=== PATIENT | female | born 1995 | race Caucasian/White ===

== ENCOUNTER 2020-06-10 07:38 | Inpatient (IN) ==
[2020-06-10] MEDS ORDERED: OXYTOCIN 30 UNITS/500 ML BAG IV PRN ×2 (07:44)
[2020-06-10] MEDS ORDERED: PENICILLIN G POTASSIUM 6 MU in DEXTROSE 5% 250 ML IV ONE (08:00)
[2020-06-10] MEDS: miSOPROStoL 25 MCG TAB PV PRN ×2 (08:49→13:09)
[2020-06-10 08:50] LABS: Hematocrit (blood only) 39.8 % (37-47); Hemoglobin 13.5 g/dL (12.0-16.0); Mean Corpuscular Hemoglobin 31.6 pg (25-34); Mean Corpuscular Volume 93.2 fL (80-100); RDW Coefficient of Variation 14.9 % (11.5-14.5); RDW Standard Deviation 50.3 fL (36.4-46.3); Red Blood Count 4.27 M/uL (4.2-5.4); White Blood Count 8.23 K/uL (4.8-10.8)
--- NOTE | 2020-06-10 09:01 | History & Physical Report ---
Date of Service June 10, 2020 Assessment & Plan (1) Suspected macroscopic fetus: - heart tracing category 1 with accelerations and variability -No cervical change after placement of cervical Nesbitt -Cervix highly unfavorable for Pitocin -We will place Cytotec 25 mcg vaginally to be repeated every 4 hours as needed -If there is some clinical response to the Cytotec may consider replacement of cervical Nesbitt -All questions answered of the patient (2) Group B streptococcal carriage complicating : -We will start penicillin 6,000,000 unit loading dose, then 3,000,000 units every 4 hours till delivery Admission and Anticipated Discharge Date Admission Date: June 10, 2020 History of Present Illness Chief Complaint: Induction for suspected macrosomia Primary Care Provider: Dori Santos MD The patient is a 25-year-old 1 para 0 with an EDC of 16 June by dates and first trimester ultrasound who was admitted at 39+ weeks gestational age for induction for suspected macrosomia. The patient has been measuring size greater than dates throughout the third trimester. Ultrasound showed an estimated weight greater than the 90th percentile. Options were discussed with the patient and she is admitted for induction. The patient presented to labor and delivery on 09 June for cervical Nesbitt placement for ripening. Patient states that the Nesbitt balloon dislodged at 0300 hrs. on day of admission. course showed a blood type of A-, antibody negative, she received RhoGam on 25 March, she had a negative rubella negative hepatitis B, she declined all genetic screening, she had a normal 1 hour Glucola at 16 weeks but elevated at 28 weeks, she had a -2-hour glucose tolerance test at 28 weeks, she had a positive third trimester beta strep culture, and a negative COVID-19 test on 03 June. Allergies Allergy/AdvReac Type Severity Reaction Status Date / Time No Known Allergies Allergy Verified 06/10/20 08:08 Home Medications Home Medications Medication Instructions Recorded Confirmed Type ferrous sulfate [iron] 325 mg PO DAILY 06/10/20 06/10/20 History prenat.vits,bernard,[id number] 1 tab PO DAILY 06/10/20 06/10/20 History [ Vitamin] Patient History Medical History Depression Need for rhogam due to Rh negative mother Varicella vaccination Surgical History H/O myringotomy History of adenoidectomy History of arthroscopy of knee History of tonsillectomy History of wisdom tooth extraction Family History Grandmother No problems noted. Grandfather Prostate cancer Myocardial infarction Mother Anemia Father Dyslipidemia Brother No problems noted. Sister No problems noted. Denies family history of Ovarian cancer Breast cancer Colorectal cancer Social History (Updated 11/06/19 @ 09:56 by Lorraine Martinez) Smoking Status: Never smoker Second Hand Exposure: No; Hx Alcohol Use: Yes Hx Substance Use: No Preferred Language: Beninese Communication Ability: Effective Visual Impairment: No Limitations Hearing Ability: Normal Beliefs That Will Affect Care: None marital status: marital status details: Jamel Forbes (27) [phone] Current Living Situation: Spouse Current Living Situation Comment: lives with spouse, dog current occupational status: employed current occupation: [employer] Other Information That Helps Us Care for You: No Feels Safe at Home: Yes Safety Concerns: Feels Safe At This Time Childhood Exposure to Second-Hand Smoke: No Dental Care, Regularly: Yes Physical Activity Frequency: 3-4 Times per Week Seatbelt Use: always Sunscreen Use: Yes Physical Exam Constitutional: WD/WN, vitals as above Respiratory: Auscultation: lungs clear to auscultation bilaterally Cardiovascular: RRR, no murmur, no edema Extremities: no calf tenderness Gastrointestinal (Abdomen): Abdomen: Gravid, vertex, positive heart tones, no palpable contractions, estimated weight of 9 pounds Genitourinary: Cervix: Fingertip/75%/-3 Results & Data ([facility]) Vital Signs (Past 12 Hours) Vital Signs Temp Pulse Resp BP 06/10/20 08:45 94 H 136/89 06/10/20 07:52 98.1 F 20 06/10/20 07:47 100 H 134/88 Coding Level of Care Code None Diagnoses Suspected macroscopic fetus Group B streptococcal carriage complicating O99.820
[2020-06-10 09:06] LABS: Mean Corpuscular Hgb Conc 33.9 g/dL (32-36); Mean Platelet Volume 12.8 fL (7.4-10.4); Platelet Count 132 K/uL (130-400); Platelet Estimate Decreased (Normal)
--- NOTE | 2020-06-10 17:19 | Labor Progress Brief Note ---
Date of Service June 10, 2020 Subjective Reason For Note: Routine Evaluation Assessment & Plan (1) Suspected macroscopic fetus: - tracing Cat I - minimal uterine activity from2 doses of cytotec - will allow patient to eat - will replace cervical south - will start pitocin low dose for cervical ripening Admission and Anticipated Discharge Date Admission Date: June 10, 2020 Physical Exam Genitourinary: deferred Results & Data ([facility]) Vital Signs (Past 12 Hours) Vital Signs Temp Pulse Resp BP 06/10/20 15:13 99.0 F 88 20 134/88 06/10/20 12:35 99.0 F 82 20 133/85 06/10/20 10:01 83 130/86 06/10/20 08:45 94 H 136/89 06/10/20 07:52 98.1 F 20 06/10/20 07:47 100 H 134/88 Coding Level of Care Code None Diagnoses Suspected macroscopic fetus
--- NOTE | 2020-06-10 19:09 | Labor Progress Brief Note ---
Date of Service June 10, 2020 Subjective For cervical Nesbitt replacement Assessment & Plan (1) Suspected macroscopic fetus: -Tracing category 1 -Nesbitt catheter replaced for cervical ripening -We will run Pitocin at 1 milliunits/min for approximately 10 hours and then increase per induction protocol -All questions answered of the patient. Admission and Anticipated Discharge Date Admission Date: June 10, 2020 Physical Exam Genitourinary: Procedure note: After obtaining verbal consent, patient is placed in a dorsolithotomy position. Cervix is visualized. A #24 cervical Nesbitt catheter is inserted into the cervix and insufflated with 30 cc of normal saline. Speculum removed, patient tolerated the procedure well. Results & Data ([facility]) Vital Signs (Past 12 Hours) Vital Signs Temp Pulse Resp BP 06/10/20 18:56 107 H 130/81 06/10/20 15:13 99.0 F 88 20 134/88 06/10/20 12:35 99.0 F 82 20 133/85 06/10/20 10:01 83 130/86 06/10/20 08:45 94 H 136/89 06/10/20 07:52 98.1 F 20 06/10/20 07:47 100 H 134/88 Coding Level of Care Code None Diagnoses Suspected macroscopic fetus CPT Codes Misx Procedure Codes - 53760 Placement of cervical dilator: 44450 Placement of cervical dilator ([id number]) LABORER HIGH DENSITY PRESS Miscellaneous Codes Misx Procedure Codes 35957 Placement of cervical dilator
[2020-06-10] MEDS: LACTATED RINGER'S 1,000 ML IV PRN (19:14)
[2020-06-10] MEDS ORDERED: ACETAMINOPHEN 325 MG TAB PO PRN (20:29)
[2020-06-10] MEDS: PENICILLIN G POTASSIUM 3 MU in DEXTROSE 5% 100 ML IV PRN (23:17)
[2020-06-11] MEDS: PENICILLIN G POTASSIUM 3 MU in DEXTROSE 5% 100 ML IV PRN ×4 (03:27→15:39)
[2020-06-11] MEDS: BUTORPHANOL TARTRATE 1 MG/ML VIAL IV PRN ×2 (04:05→05:09)
[2020-06-11] MEDS: LACTATED RINGER'S 1,000 ML IV PRN ×3 (05:34→15:51)
[2020-06-11] MEDS ORDERED: ePHEDrine sulfate 50 MG/ML AMP ONE (05:41)
[2020-06-11] MEDS ORDERED: fentaNYL citrate 100 MCG/2 ML VIAL ONE ×3 (05:41→22:02)
[2020-06-11] MEDS ORDERED: BUPIVACAINE 0.25% 30 ML VIAL ONE ×3 (05:41→19:44)
[2020-06-11] MEDS ORDERED: fentaNYL 2MCG/ML ROPIV 1.25MG/ML 100 ML BAG EPI ONE (05:42)
--- NOTE | 2020-06-11 06:02 | Anesthesiology Consultation ---
Date of Service June 11, 2020 Assessment & Plan (1) Encounter for pre-operative examination: Chart Review Chart Review: Patient NOT seen in Pre Admission Testing and Acceptable Risk for Labor Epidural Consults Requested none ASA ASA2 Proposed Anesthesia Anesthesia Type: Labor Epidural Risk / Benefits Reviewed With: PT / POA / Parent / Guardian, Accepts Plan and Informed Consent Obtained History Height/Weight Height: 5 ft 3 in Weight: 92.986 kg Allergies Allergy/AdvReac Type Severity Reaction Status Date / Time No Known Allergies Allergy Verified 06/10/20 08:08 Medications Home Medications Medication Instructions Recorded Confirmed Last Taken ferrous sulfate [iron] 325 mg PO DAILY 06/10/20 06/10/20 06/09/20 20:00 prenat.vits,bernard,[id number] 1 tab PO DAILY 06/10/20 06/10/20 06/09/20 20:00 [ Vitamin] Active Medications Generic Name Dose Route Start Last Admin Trade Name Freq PRN Reason Stop Dose Admin Acetaminophen 650 mg 06/10/20 20:29 06/10/20 20:46 Acetaminophen 325 Mg Tab PO 07/10/20 20:28 650 mg Q4H PRN Administration Pain Butorphanol Tartrate 1 mg 06/10/20 20:29 06/11/20 05:09 Butorphanol Tartrate 1 Mg/Ml Vial IV 07/10/20 20:28 1 mg Q1H PRN Administration Pain Lactated Ringer's 1,000 mls @ 125 mls/hr 06/10/20 07:44 06/11/20 06:03 Lr IV 06/12/20 07:43 125 mls/hr .Q8H PRN Infusion L&D Protocol Protocol Penicillin G Potassium 3 mu/ 106 mls @ 100 mls/hr 06/10/20 07:44 06/11/20 04:33 Dextrose IV 06/20/20 07:43 Infused Q4H PRN Infusion Give until delivery Oxytocin 30 units in 500 mls @ 9 mls/hr 06/10/20 07:44 06/11/20 04:30 Pitocin IV 06/12/20 07:43 0.54 units/hr .Q24H PRN 9 mls/hr Labor Induction/Augmentation Titration Protocol 0.54 UNITS/HR Misoprostol 25 mcg 06/10/20 08:29 06/10/20 13:09 Misoprostol 25 Mcg Tab PV 07/10/20 08:29 25 mcg Q4H PRN Administration Contractions NPO Date Last Intake of Fluids: 06/11/20 Time Last Intake of Fluids: 05:58 Date Last Intake of Solids: 06/10/20 Time Last Intake of Solids: 18:00 Past Medical History Medical History Depression Need for rhogam due to Rh negative mother Varicella vaccination Exercise / Class Metabolic Activity II 4-5 Yardwork/Stairs/Walk up hill Past Family History Family History Grandmother No problems noted. Grandfather Prostate cancer Myocardial infarction Mother Anemia Father Dyslipidemia Brother No problems noted. Sister No problems noted. Denies family history of Ovarian cancer Breast cancer Colorectal cancer Past Surgical History Surgical History H/O myringotomy History of adenoidectomy History of arthroscopy of knee History of tonsillectomy History of wisdom tooth extraction Past Anesthesia History No Hx of Anesthesia Complications History of PONV No Hx of PONV Social History Smoking Status: Never smoker Hx Alcohol Use: Yes Hx Substance Use: No Review of Systems Negative for chest pain or shortness of breath. Patient denies history of abnormal bleeding or bleeding disorder. Patient denies active use of anticoagulants other than low dose aspirin. Patient denies numbness, tingling or weakness in lower extremities. Physical Exam Vital Signs Last Vital Signs Temp 37.2 C 06/11/20 03:30 Pulse 68 06/11/20 05:51 Resp 18 06/11/20 03:30 BP 115/65 06/11/20 04:52 Pulse Ox 95 06/11/20 05:51 Constitutional not obese (Gravid ) ENMT Mouth: no TMJ abnormality and oral opening not small Thyromental Distance: > or= 3.5 Finger Breadths Mallampati Class: II Neck normal visual inspection; neck extension not limited Respiratory normal respiratory effort Auscultation: lungs clear to auscultation bilaterally Cardiovascular Rate/Rhythm: regular rate and regular rhythm Heart Sounds: no murmur Neurologic moves all extremities Motor/Sensory: no sensory deficit Psychiatric Orientation: alert and oriented x 3 Testing Laboratory Results 06/10/20 08:13
[2020-06-11] MEDS ORDERED: DiphenhydrAMINE HCL 50 MG/ML VIAL IV PRN ×3 (07:15→23:01)
[2020-06-11] MEDS ORDERED: ONDANSETRON INJ 2 MG/ML 2 ML VIAL IV PRN ×3 (07:15→23:01)
[2020-06-11] MEDS ORDERED: ePHEDrine sulfate 50 MG/ML AMP IV PRN ×2 (07:15→23:01)
[2020-06-11] MEDS ORDERED: PROMETHAZINE HCL 6.25 MG in SODIUM CHLORIDE 0.9% 50 ML IV PRN ×2 (07:15→23:01)
[2020-06-11] MEDS ORDERED: NALOXONE HCL 1 MG in SODIUM CHLORIDE 0.9% 1000ML 1,000 ML IV PRN ×2 (07:15→23:01)
[2020-06-11] MEDS ORDERED: NALOXONE HCL 0.4 MG/1 ML VIAL/CARP IV PRN ×2 (07:15→23:01)
--- NOTE | 2020-06-11 07:17 | Procedure Note ---
Procedure Note Date of Service June 11, [address] epidural at about 0540. Arrived and consented patient by 0605. Patient prepped and draped and multiple attempts made starting at 0610 around the L2/L3 and L3/L4 interspaces without success. Needle would advance until about 5.5 to 6 cm before hitting OS. Pt tolerated all attempts well and at no time did the patient experience a parasthesia. The needle never advanced beyond bone and there was no evidence of dural puncture. At 0645 the next OB anesthesiologist coming in was called to attempt placement. Leonor Sharma MD, PhD Anesthesiologist Coding
--- NOTE | 2020-06-11 07:44 | Labor Progress Brief Note ---
Date of Service June 11, 2020 Subjective Reason For Note: Routine Evaluation Comfortable with epidural Assessment & Plan (1) Suspected macroscopic fetus: - tracing Cat II - IUPC - continue the pitocin Admission and Anticipated Discharge Date Admission Date: June 10, 2020 Physical Exam Genitourinary: Cervix: 3/50/-2, AROM, ?light mec, IUPC placed Results & Data ([facility]) Vital Signs (Past 12 Hours) Vital Signs Temp Pulse Resp BP Pulse Ox 06/11/20 07:38 82 130/75 06/11/20 07:36 92 H 124/75 99 06/11/20 07:34 88 129/74 06/11/20 07:32 77 125/75 06/11/20 07:31 89 98 06/11/20 07:30 83 119/70 06/11/20 07:28 82 125/74 06/11/20 07:26 84 121/75 98 06/11/20 07:24 80 121/72 06/11/20 07:22 83 119/70 06/11/20 07:21 88 97 06/11/20 07:20 84 119/72 06/11/20 07:18 79 122/76 06/11/20 07:17 85 124/81 06/11/20 07:16 82 97 06/11/20 07:15 85 125/67 06/11/20 07:12 76 122/73 06/11/20 07:11 84 98 06/11/20 07:10 79 124/78 06/11/20 07:08 77 119/79 06/11/20 07:06 83 126/80 99 06/11/20 07:01 110 H 100 06/11/20 06:56 108 H 99 06/11/20 06:51 92 H 98 06/11/20 06:46 103 H 98 06/11/20 06:41 96 H 97 06/11/20 06:36 98 H 98 06/11/20 06:31 88 97 06/11/20 06:26 87 97 06/11/20 06:21 75 97 06/11/20 06:16 89 99 06/11/20 06:11 75 100 06/11/20 06:06 96 H 100 06/11/20 06:01 86 99 06/11/20 05:58 69 94 06/11/20 05:56 81 99 06/11/20 05:51 68 95 06/11/20 05:46 83 100 06/11/20 05:35 77 99 06/11/20 05:30 76 79 L 06/11/20 05:25 87 100 06/11/20 05:23 72 92 06/11/20 05:20 67 89 L 06/11/20 05:16 72 92 06/11/20 05:15 75 98 06/11/20 05:10 77 99 06/11/20 05:08 71 92 06/11/20 05:05 91 H 99 06/11/20 05:01 72 92 06/11/20 05:00 81 99 06/11/20 04:55 89 99 06/11/20 04:52 69 115/65 06/11/20 04:50 75 97 06/11/20 04:49 73 94 06/11/20 04:45 74 97 06/11/20 04:40 70 98 06/11/20 04:37 70 92 06/11/20 04:35 84 98 06/11/20 04:30 70 96 06/11/20 04:25 69 96 06/11/20 04:21 71 94 06/11/20 04:20 70 95 06/11/20 04:15 72 95 06/11/20 04:11 66 93 06/11/20 04:10 71 97 06/11/20 04:05 75 99 06/11/20 04:00 85 100 06/11/20 03:51 68 129/80 06/11/20 03:30 99.0 F 18 06/11/20 02:51 82 131/83 06/11/20 01:51 69 20 146/87 H 06/11/20 01:21 75 121/74 06/11/20 00:21 71 18 127/83 06/10/20 23:18 98.4 F 86 16 120/65 06/10/20 22:18 90 16 125/70 06/10/20 21:18 96 H 18 138/71 06/10/20 20:18 85 18 120/71 Coding Level of Care Code None Diagnoses Suspected macroscopic fetus
[2020-06-11] MEDS: fentaNYL 2MCG/ML ROPIV 1.25MG/ML 100 ML BAG EPI PRN ×2 (14:04→19:11)
[2020-06-11] MEDS ORDERED: Nursing to Pharmacy Communication SCH (14:15)
[2020-06-11] MEDS ORDERED: KETOROLAC 30 MG/ML VIAL IV PRN ×2 (17:01→23:01)
[2020-06-11] MEDS ORDERED: PROMETHAZINE HCL 25 MG in SODIUM CHLORIDE 0.9% 50 ML IV PRN (17:01)
[2020-06-11] MEDS ORDERED: GENTAMICIN CONSULT ACTIVE PRN (19:06)
--- NOTE | 2020-06-11 19:24 | Labor Progress Brief Note ---
Date of Service June 11, 2020 Subjective Feeling pressure. FHT 160-170s, mod scott, +accels, no decels. [place] Q 2 SVE 7/100/+1 per RN Since there is persistent tachycardia, and climbing maternal temp, will initial antibiotics for chorioamnionitis (ampicillin, gentamicin). Assessment & Plan Admission and Anticipated Discharge Date Admission Date: June 10, 2020 Results & Data ([facility]) Vital Signs (Past 12 Hours) Vital Signs Temp Pulse Resp BP Pulse Ox 06/11/20 19:21 88 99 06/11/20 19:16 108 H 99 06/11/20 19:11 126 H 100 06/11/20 19:10 96 H 142/90 H 06/11/20 19:06 116 H 100 06/11/20 19:01 94 H 95 06/11/20 18:56 115 H 99 06/11/20 18:55 97 H 155/86 H 06/11/20 18:51 104 H 98 06/11/20 18:46 115 H 98 06/11/20 18:42 94 H 145/85 H 06/11/20 18:41 111 H 98 06/11/20 18:36 100 H 98 06/11/20 18:31 111 H 98 06/11/20 18:30 18 06/11/20 18:26 105 H 97 06/11/20 18:25 102 H 137/78 06/11/20 18:21 140 H 99 06/11/20 18:16 103 H 98 06/11/20 18:11 95 H 129/73 98 06/11/20 18:06 86 98 06/11/20 18:01 87 97 06/11/20 18:00 20 06/11/20 17:56 88 130/69 98 06/11/20 17:51 89 98 06/11/20 17:46 96 H 98 06/11/20 17:41 93 H 127/69 98 06/11/20 17:36 95 H 99 06/11/20 17:31 110 H 99 06/11/20 17:30 18 06/11/20 17:26 88 122/66 98 06/11/20 17:21 84 98 06/11/20 17:16 84 99 06/11/20 17:11 87 98 06/11/20 17:10 82 117/65 06/11/20 17:06 85 99 06/11/20 17:01 83 99 06/11/20 17:00 37.7 C H 18 06/11/20 16:56 85 99 06/11/20 16:55 88 114/62 06/11/20 16:51 83 98 06/11/20 16:46 88 99 06/11/20 16:41 88 120/69 99 06/11/20 16:36 82 100 06/11/20 16:31 103 H 99 06/11/20 16:30 20 06/11/20 16:26 107 H 100 06/11/20 16:25 80 130/78 06/11/20 16:21 93 H 100 06/11/20 16:16 86 100 06/11/20 16:11 95 H 125/72 100 06/11/20 16:06 81 98 06/11/20 16:01 82 99 06/11/20 16:00 18 06/11/20 15:56 85 129/73 99 06/11/20 15:51 98 H 99 06/11/20 15:46 84 99 06/11/20 15:42 80 131/75 06/11/20 15:41 80 99 06/11/20 15:37 37.5 C 06/11/20 15:36 107 H 99 06/11/20 15:31 92 H 98 06/11/20 15:30 20 06/11/20 15:26 81 130/70 98 06/11/20 15:21 80 98 06/11/20 15:16 81 98 06/11/20 15:12 78 128/72 06/11/20 15:11 80 98 06/11/20 15:06 79 98 06/11/20 15:01 80 98 06/11/20 15:00 37.1 C 16 06/11/20 14:56 82 131/63 98 06/11/20 14:51 82 99 06/11/20 14:46 79 99 06/11/20 14:42 93 H 128/80 06/11/20 14:41 89 100 06/11/20 14:36 84 99 06/11/20 14:31 76 98 06/11/20 14:30 18 06/11/20 14:26 72 96 06/11/20 14:25 71 122/71 06/11/20 14:21 79 100 06/11/20 14:16 84 100 06/11/20 14:11 95 H 119/76 100 06/11/20 14:06 105 H 100 06/11/20 14:01 107 H 100 06/11/20 14:00 20 06/11/20 13:56 91 H 100 06/11/20 13:55 91 H 130/77 06/11/20 13:51 91 H 100 06/11/20 13:46 79 100 06/11/20 13:41 86 97 06/11/20 13:40 86 128/68 06/11/20 13:36 85 98 06/11/20 13:31 100 H 97 06/11/20 13:30 18 06/11/20 13:26 74 123/76 98 06/11/20 13:21 77 97 06/11/20 13:16 93 H 99 06/11/20 13:11 97 H 98 06/11/20 13:10 75 110/68 06/11/20 13:06 76 96 06/11/20 13:01 76 97 06/11/20 13:00 37.0 C 16 06/11/20 12:56 81 124/78 98 06/11/20 12:51 82 98 06/11/20 12:46 80 98 06/11/20 12:41 89 98 06/11/20 12:40 71 119/78 06/11/20 12:36 81 98 06/11/20 12:31 78 98 06/11/20 12:30 18 06/11/20 12:26 80 129/81 98 06/11/20 12:21 88 98 06/11/20 12:16 75 99 06/11/20 12:12 82 124/79 06/11/20 12:11 86 98 06/11/20 12:06 89 98 06/11/20 12:01 101 H 99 06/11/20 12:00 18 06/11/20 11:56 77 97 06/11/20 11:55 75 111/59 L 06/11/20 11:51 75 97 06/11/20 11:46 76 96 06/11/20 11:41 75 97 06/11/20 11:40 85 111/66 06/11/20 11:36 90 99 06/11/20 11:31 76 96 08/25/20 11:30 16 06/11/20 11:26 74 96 06/11/20 11:25 74 103/56 L 06/11/20 11:21 81 97 06/11/20 11:16 91 H 97 06/11/20 11:11 81 98 06/11/20 11:10 80 110/65 06/11/20 11:06 74 98 06/11/20 11:01 103 H 97 06/11/20 11:00 37.2 C 18 06/11/20 10:56 109 H 99 06/11/20 10:55 72 120/71 06/11/20 10:51 78 98 06/11/20 10:46 87 97 06/11/20 10:41 75 122/68 97 06/11/20 10:36 88 98 06/11/20 10:31 97 H 97 06/11/20 10:30 16 06/11/20 10:26 87 131/80 97 06/11/20 10:21 103 H 99 06/11/20 10:16 77 97 06/11/20 10:11 77 118/67 98 06/11/20 10:06 76 97 06/11/20 10:01 82 96 06/11/20 10:00 16 06/11/20 09:56 87 97 06/11/20 09:55 84 114/66 06/11/20 09:51 73 98 06/11/20 09:46 77 97 06/11/20 09:45 18 06/11/20 09:41 80 97 06/11/20 09:40 69 120/67 06/11/20 09:36 71 98 06/11/20 09:31 70 97 06/11/20 09:30 18 06/11/20 09:26 72 97 06/11/20 09:25 69 118/66 06/11/20 09:21 97 06/11/20 09:16 75 97 06/11/20 09:15 18 06/11/20 09:11 83 126/74 99 06/11/20 09:06 81 99 06/11/20 09:01 79 98 06/11/20 09:00 36.7 C 16 06/11/20 08:56 76 119/72 97 06/11/20 08:51 99 H 99 06/11/20 08:46 90 99 06/11/20 08:41 70 98 06/11/20 08:38 75 116/68 06/11/20 08:36 81 98 06/11/20 08:33 83 114/64 06/11/20 08:31 72 97 06/11/20 08:29 72 117/64 06/11/20 08:26 76 98 06/11/20 08:23 71 120/66 06/11/20 08:21 78 97 06/11/20 08:19 70 119/66 06/11/20 08:16 77 97 06/11/20 08:15 16 06/11/20 08:13 74 122/68 06/11/20 08:11 83 98 06/11/20 08:09 73 118/68 06/11/20 08:06 86 98 06/11/20 08:03 82 123/64 06/11/20 08:01 72 97 06/11/20 08:00 18 06/11/20 07:58 72 121/65 06/11/20 07:56 83 97 06/11/20 07:54 73 125/68 06/11/20 07:51 80 98 06/11/20 07:46 80 122/66 99 06/11/20 07:45 20 06/11/20 07:44 90 133/65 06/11/20 07:42 101 H 135/71 06/11/20 07:41 100 H 100 06/11/20 07:40 96 H 121/68 06/11/20 07:38 82 130/75 06/11/20 07:36 92 H 124/75 99 06/11/20 07:34 88 129/74 06/11/20 07:32 77 125/75 06/11/20 07:31 89 98 06/11/20 07:30 83 18 119/70 06/11/20 07:28 82 125/74 06/11/20 07:26 84 121/75 98 06/11/20 07:24 80 121/72 Coding Level of Care Code None
[2020-06-11] MEDS ORDERED: GENTAMICIN SULFATE IV SCH (19:30)
[2020-06-11] MEDS ORDERED: DEXTROSE 5% IV SCH (19:30)
[2020-06-11] MEDS: AMPICILLIN 2,000 MG in SODIUM CHLOR 0.9% AD-VAN 50 ML IV SCH ×3 (19:37→20:20)
[2020-06-11] MEDS ORDERED: CITRIC ACID/SODIUM CITRATE 15 ML UDC ONE (20:48)
--- NOTE | 2020-06-11 20:54 | History & Physical Bridge Note ---
Date of Service June 11, 2020 History & Physical Bridge Note I have examined the patient, reviewed the History & Physical and in the interval since the performance of the History & Physical I have noted the following changes of clinical significance: Patient has had redose of epidural, and is more comfortable. FHT 170s, mod scott, +accels, no decels. Ctx Q 2min, has had adequate MVUs for 5+ hours. Cervix still 7cm, 100%, 0 to 1+ station. No change for the past 5 hours with adequate MVU. I discussed with patient the failure of her cervix to dilate. Given tachycardia, treatment for chorioamnionitis, and failure to dilate, recommend that we proceed to section. Patient is agreeable. Informed consent obtained. Questions answered. Will proceed to OR.
[2020-06-11] MEDS ORDERED: CEFAZOLIN 2000MG 2,000 MG/15 ML SYR IV SCH (21:00)
[2020-06-11] MEDS ORDERED: CITRIC ACID/SODIUM CITRATE 15 ML UDC PO SCH (21:00)
[2020-06-11] MEDS ORDERED: LIDOCAINE/EPINEPHRINE 2% 1:200,000 20 ML SDV ONE (21:42)
[2020-06-11] MEDS ORDERED: MoRPHine SULFATE PF 1 MG/ML 10 ML AMP/VIAL ONE (22:02)
[2020-06-11] MEDS ORDERED: OXYTOCIN 10 UNITS/ML VIAL ONE (22:11)
[2020-06-11] MEDS ORDERED: PHENYLEPHRINE 100MCG/ML 5ML SYR ONE (22:11)
[2020-06-11] MEDS ORDERED: KETOROLAC 30 MG/ML VIAL ONE (22:11)
[2020-06-11] MEDS ORDERED: ROPIVACAINE 0.5% 5 MG/ML 30 ML VIAL ONE (22:11)
--- NOTE | 2020-06-11 22:55 | Operative Report ---
PG Post Operative Report Pre & Post Diagnosis Operation Date: 06/11/20 20:40 Pre-Op Diagnosis: Term intrauterine , induction of labor, Failure to Dilate, chorioamnionitis Post-Op Diagnosis: same I identified the patient and participated in the time-out.: Yes Procedure Operation Date: 06/11/20 20:40 Actual Procedures Primary low transverse Section in LD(Bilateral) - Kathy Major DO Surgeon Kathy Major DO Load Blocker S Forr RN Estimated Blood Loss 500 Findings Consistent with Post-Op Diagnosis Viable male , Apgars 7/9, weight 7#15. Normal appearing uterus, tubes, ovaries. Specimens placenta, cord blood, cord gas Drains south clear yellow Anesthesia Type L&D Only Epidural Exists Complications none Disposition Accompanied Patient To Recovery: Yes Disposition: L&D Indications 25yo @ 39 2/ with induction of labor for suspected macrosomic . Began induction Wednesday night with south bulb with no dilation by morning. Received cytotec yesterday, another south bulb overnight and low dose pitocin. Today, AROM and pitocin. She progressed to 7cm, and then did not progress fur ther over 5 hours' of adequate MVU contractions. Description of Procedure The patient was seen in the preoperative holding area, where risks benefits and alternatives to surgery reviewed. She elected to proceed with the case. She signed informed consent. Questions were answered. She was taken to the operating room, spinal anesthesia was administered. She was then prepared and draped in the usual sterile fashion in the supine position with a leftward tilt. Timeout was confirmed. She had been given Ancef 2 g. She also had been receiving ampicillin for chorioamnionitis, and then rec'd a dose of gentamicin after delivery of baby. The skin incision was made with scalpel, Pfannenstiel. This was carried through to the underlying layer of fascia. This was nicked at midline, and the incision was extended bilaterally. The superior aspect of the fascial incision was grasped with Joaquin clamps x2, elevated off the underlying rectus abdominis muscles and dissected. The inferior aspect of the incision was dissected in a similar fashion. The rectus abdominis muscles were entered sharply, and this was bluntly and sharply. Peritoneum was part of the rectus muscles and we are in the peritoneal cavity at this time. The bladder flap was taken down sharply. A new scalpel was used to make a low transverse uterine incision. The was delivered from a cephalic presentation, no nuchal cord. Spontaneous cry on the field. The cord was doubly clamped and cut, the baby was handed off to waiting tiltrotor crew chief. A cord segment was retained for cord gases. Cord blood was obtained. The placenta was delivered spontaneously intact. The uterus was exteriorized, and cleared of clots and debris. The hysterotomy was reapproximated using 0 Vicryl in a running locked stitch. A second layer of the same suture was used to imbricate the incision. Posterior uterus was evaluated and normal. The uterus was returned to the abdomen, excellent hemostasis observed. Gutters were cleared of clots and debris. Excellent hemostasis was observed. The fascial incision was reapproximated using 0 Vicryl in a running stitch. The subcutaneous tissue was irrigated, reapproximated with using 2-0 plain gut. The skin was reapproximated using 4-0 Vicryl in a subcuticular stitch. Dermabond glue used across incision per patient request. Instrument, sponge, needle counts were correct at the conclusion of the case. The patient tolerated the procedure well and was taken to her labor room to recover in stable condition. I attest to the content of the Intraoperative Record and any orders documented therein. Any exceptions are noted below.
[2020-06-11 23:00] LABS: Base Excess Cord Arterial Bld -3.6 mEq/L (-9-1.8); Base Excess Cord Venous Blood -2.6 mEq/L (-7.7-1.9); CO2 Cord Arterial Blood 50 mmHg (39.1-73.5); Cord Venous Blood HCO3 22 mmol/L (18.4-26.8); Cord Venous Blood PCO2 40 mmHg (30.4-57.2); Cord Venous Blood PO2 26 mmHg (14.1-43.3); Cord Venous Blood pH 7.37 (7.20-7.44); HCO3 Cord Arterial Blood 24 mmol/L (19.7-28.5); PO2 Cord Arterial Blood 17 mmHg (4.1-31.7); pH Cord Arterial Blood 7.29 (7.1-7.38)
[2020-06-11] MEDS ORDERED: MoRPHine SULFATE 2 MG/ML CARP IV PRN (23:01)
[2020-06-11] MEDS ORDERED: NALOXONE HCL 0.08 MG in SYRINGE 1.8 ML IV PRN (23:01)
[2020-06-11] MEDS ORDERED: HYDROmorphone INJ 0.5 MG/0.5 ML SYR IV PRN (23:01)
[2020-06-11] MEDS ORDERED: LACTATED RINGER'S 500 ML IV PRN (23:01)
[2020-06-11] MEDS ORDERED: MoRPHine SULFATE PF 1 MG/ML 10 ML AMP/VIAL INT SPINAL ONE (23:01)
--- NOTE | 2020-06-11 23:01 | Anesthesiology Progress Note ---
Date of Service June 11, 2020 Anesthesia Post Procedure Vital Signs Vital Signs: Temp Pulse Resp BP Pulse Ox 06/11/20 22:59 108 H 100 06/11/20 22:54 103 H 91/48 L 100 06/11/20 21:32 133 H 144/95 H 06/11/20 21:31 133 H 97 06/11/20 21:30 18 06/11/20 21:26 123 H 96 06/11/20 21:22 37.7 C H 06/11/20 21:21 127 H 96 06/11/20 21:17 116 H 140/80 06/11/20 21:16 134 H 97 06/11/20 21:11 154 H 97 06/11/20 21:06 120 H 132/76 96 06/11/20 21:01 136 H 97 06/11/20 20:56 122 H 96 06/11/20 20:51 123 H 97 06/11/20 20:46 127 H 97 06/11/20 20:41 124 H 98 06/11/20 20:36 120 H 98 06/11/20 20:31 103 H 99 06/11/20 20:26 102 H 96 06/11/20 20:21 107 H 96 06/11/20 20:17 89 140/82 06/11/20 20:16 103 H 97 06/11/20 20:11 90 96 06/11/20 20:08 91 H 130/69 06/11/20 20:06 93 H 98 06/11/20 20:02 86 141/76 H 06/11/20 20:01 86 94 06/11/20 19:58 102 H 147/80 H 06/11/20 19:56 102 H 140/76 100 06/11/20 19:54 87 140/75 06/11/20 19:52 96 H 135/72 06/11/20 19:51 104 H 98 06/11/20 19:50 101 H 144/74 H 06/11/20 19:48 98 H 144/76 H 06/11/20 19:47 100 H 136/88 06/11/20 19:46 95 H 100 06/11/20 19:44 89 123/58 L 06/11/20 19:42 91 H 128/67 06/11/20 19:41 101 H 141/67 H 99 06/11/20 19:38 92 H 137/74 06/11/20 19:36 89 131/65 98 06/11/20 19:34 90 143/70 H 06/11/20 19:32 106 H 132/77 06/11/20 19:31 91 H 100 06/11/20 19:30 93 H 141/66 H 06/11/20 19:27 37.1 C 06/11/20 19:26 95 H 143/82 H 99 06/11/20 19:21 88 99 06/11/20 19:16 108 H 99 06/11/20 19:11 126 H 100 06/11/20 19:10 96 H 142/90 H 06/11/20 19:06 116 H 100 06/11/20 19:01 94 H 95 06/11/20 18:56 115 H 99 06/11/20 18:55 97 H 155/86 H 06/11/20 18:51 104 H 98 06/11/20 18:46 115 H 98 06/11/20 18:42 94 H 145/85 H 06/11/20 18:41 111 H 98 06/11/20 18:36 100 H 98 06/11/20 18:31 111 H 98 06/11/20 18:30 18 06/11/20 18:26 105 H 97 06/11/20 18:25 102 H 137/78 06/11/20 18:21 140 H 99 06/11/20 18:16 103 H 98 06/11/20 18:11 95 H 129/73 98 06/11/20 18:06 86 98 06/11/20 18:01 87 97 06/11/20 18:00 20 06/11/20 17:56 88 130/69 98 06/11/20 17:51 89 98 06/11/20 17:46 96 H 98 06/11/20 17:41 93 H 127/69 98 06/11/20 17:36 95 H 99 06/11/20 17:31 110 H 99 06/11/20 17:30 18 06/11/20 17:26 88 122/66 98 06/11/20 17:21 84 98 06/11/20 17:16 84 99 06/11/20 17:11 87 98 06/11/20 17:10 82 117/65 06/11/20 17:06 85 99 06/11/20 17:01 83 99 06/11/20 17:00 37.7 C H 18 06/11/20 16:56 85 99 06/11/20 16:55 88 114/62 06/11/20 16:51 83 98 06/11/20 16:46 88 99 06/11/20 16:41 88 120/69 99 06/11/20 16:36 82 100 06/11/20 16:31 103 H 99 06/11/20 16:30 20 06/11/20 16:26 107 H 100 06/11/20 16:25 80 130/78 06/11/20 16:21 93 H 100 06/11/20 16:16 86 100 06/11/20 16:11 95 H 125/72 100 06/11/20 16:06 81 98 06/11/20 16:01 82 99 06/11/20 16:00 18 06/11/20 15:56 85 129/73 99 06/11/20 15:51 98 H 99 06/11/20 15:46 84 99 06/11/20 15:42 80 131/75 06/11/20 15:41 80 99 06/11/20 15:37 37.5 C 06/11/20 15:36 107 H 99 06/11/20 15:31 92 H 98 06/11/20 15:30 20 06/11/20 15:26 81 130/70 98 06/11/20 15:21 80 98 06/11/20 15:16 81 98 06/11/20 15:12 78 128/72 06/11/20 15:11 80 98 06/11/20 15:06 79 98 06/11/20 15:01 80 98 06/11/20 15:00 37.1 C 16 06/11/20 14:56 82 131/63 98 06/11/20 14:51 82 99 06/11/20 14:46 79 99 06/11/20 14:42 93 H 128/80 06/11/20 14:41 89 100 06/11/20 14:36 84 99 06/11/20 14:31 76 98 06/11/20 14:30 18 06/11/20 14:26 72 96 06/11/20 14:25 71 122/71 06/11/20 14:21 79 100 06/11/20 14:16 84 100 06/11/20 14:11 95 H 119/76 100 06/11/20 14:06 105 H 100 06/11/20 14:01 107 H 100 06/11/20 14:00 20 06/11/20 13:56 91 H 100 06/11/20 13:55 91 H 130/77 06/11/20 13:51 91 H 100 06/11/20 13:46 79 100 06/11/20 13:41 86 97 06/11/20 13:40 86 128/68 06/11/20 13:36 85 98 06/11/20 13:31 100 H 97 06/11/20 13:30 18 06/11/20 13:26 74 123/76 98 06/11/20 13:21 77 97 06/11/20 13:16 93 H 99 06/11/20 13:11 97 H 98 06/11/20 13:10 75 110/68 06/11/20 13:06 76 96 06/11/20 13:01 76 97 06/11/20 13:00 37.0 C 16 06/11/20 12:56 81 124/78 98 06/11/20 12:51 82 98 06/11/20 12:46 80 98 06/11/20 12:41 89 98 06/11/20 12:40 71 119/78 06/11/20 12:36 81 98 06/11/20 12:31 78 98 06/11/20 12:30 18 06/11/20 12:26 80 129/81 98 06/11/20 12:21 88 98 06/11/20 12:16 75 99 06/11/20 12:12 82 124/79 06/11/20 12:11 86 98 06/11/20 12:06 89 98 06/11/20 12:01 101 H 99 06/11/20 12:00 18 06/11/20 11:56 77 97 06/11/20 11:55 75 111/59 L 06/11/20 11:51 75 97 06/11/20 11:46 76 96 06/11/20 11:41 75 97 06/11/20 11:40 85 111/66 06/11/20 11:36 90 99 08/25/20 11:31 76 96 06/11/20 11:30 16 06/11/20 11:26 74 96 06/11/20 11:25 74 103/56 L 06/11/20 11:21 81 97 06/11/20 11:16 91 H 97 06/11/20 11:11 81 98 06/11/20 11:10 80 110/65 06/11/20 11:06 74 98 06/11/20 11:01 103 H 97 06/11/20 11:00 37.2 C 18 06/11/20 10:56 109 H 99 06/11/20 10:55 72 120/71 06/11/20 10:51 78 98 06/11/20 10:46 87 97 06/11/20 10:41 75 122/68 97 06/11/20 10:36 88 98 06/11/20 10:31 97 H 97 06/11/20 10:30 16 06/11/20 10:26 87 131/80 97 06/11/20 10:21 103 H 99 06/11/20 10:16 77 97 06/11/20 10:11 77 118/67 98 06/11/20 10:06 76 97 06/11/20 10:01 82 96 06/11/20 10:00 16 06/11/20 09:56 87 97 06/11/20 09:55 84 114/66 06/11/20 09:51 73 98 06/11/20 09:46 77 97 06/11/20 09:45 18 06/11/20 09:41 80 97 06/11/20 09:40 69 120/67 06/11/20 09:36 71 98 06/11/20 09:31 70 97 06/11/20 09:30 18 06/11/20 09:26 72 97 06/11/20 09:25 69 118/66 06/11/20 09:21 97 06/11/20 09:16 75 97 06/11/20 09:15 18 06/11/20 09:11 83 126/74 99 06/11/20 09:06 81 99 06/11/20 09:01 79 98 06/11/20 09:00 36.7 C 16 06/11/20 08:56 76 119/72 97 06/11/20 08:51 99 H 99 06/11/20 08:46 90 99 08/25/20 08:41 70 98 06/11/20 08:38 75 116/68 06/11/20 08:36 81 98 06/11/20 08:33 83 114/64 06/11/20 08:31 72 97 06/11/20 08:29 72 117/64 06/11/20 08:26 76 98 06/11/20 08:23 71 120/66 06/11/20 08:21 78 97 06/11/20 08:19 70 119/66 06/11/20 08:16 77 97 06/11/20 08:15 16 06/11/20 08:13 74 122/68 06/11/20 08:11 83 98 06/11/20 08:09 73 118/68 06/11/20 08:06 86 98 06/11/20 08:03 82 123/64 06/11/20 08:01 72 97 06/11/20 08:00 18 06/11/20 07:58 72 121/65 06/11/20 07:56 83 97 06/11/20 07:54 73 125/68 06/11/20 07:51 80 98 06/11/20 07:46 80 122/66 99 06/11/20 07:45 20 06/11/20 07:44 90 133/65 06/11/20 07:42 101 H 135/71 06/11/20 07:41 100 H 100 06/11/20 07:40 96 H 121/68 06/11/20 07:38 82 130/75 06/11/20 07:36 92 H 124/75 99 06/11/20 07:34 88 129/74 06/11/20 07:32 77 125/75 06/11/20 07:31 89 98 06/11/20 07:30 83 18 119/70 06/11/20 07:28 82 125/74 06/11/20 07:26 84 121/75 98 06/11/20 07:24 80 121/72 06/11/20 07:22 83 119/70 06/11/20 07:21 88 97 06/11/20 07:20 84 119/72 06/11/20 07:18 79 122/76 06/11/20 07:17 85 124/81 08/25/20 07:16 82 97 06/11/20 07:15 37.1 C 85 16 125/67 06/11/20 07:12 76 122/73 06/11/20 07:11 84 98 06/11/20 07:10 79 124/78 06/11/20 07:08 77 119/79 06/11/20 07:06 83 126/80 99 06/11/20 07:01 110 H 100 06/11/20 06:56 108 H 99 06/11/20 06:51 92 H 98 06/11/20 06:46 103 H 98 06/11/20 06:41 96 H 97 06/11/20 06:36 98 H 98 06/11/20 06:31 88 97 06/11/20 06:26 87 97 06/11/20 06:21 75 97 06/11/20 06:16 89 99 06/11/20 06:11 75 100 06/11/20 06:06 96 H 100 06/11/20 06:01 86 99 06/11/20 05:58 69 94 06/11/20 05:56 81 99 06/11/20 05:51 68 95 06/11/20 05:46 83 100 06/11/20 05:35 77 99 06/11/20 05:30 76 79 L 06/11/20 05:25 87 100 06/11/20 05:23 72 92 06/11/20 05:20 67 89 L 06/11/20 05:16 72 92 06/11/20 05:15 75 98 06/11/20 05:10 77 99 06/11/20 05:08 71 92 06/11/20 05:05 91 H 99 06/11/20 05:01 72 92 06/11/20 05:00 81 99 06/11/20 04:55 89 99 06/11/20 04:52 69 115/65 06/11/20 04:50 75 97 06/11/20 04:49 73 94 06/11/20 04:45 74 97 06/11/20 04:40 70 98 06/11/20 04:37 70 92 06/11/20 04:35 84 98 06/11/20 04:30 70 96 06/11/20 04:25 69 96 06/11/20 04:21 71 94 06/11/20 04:20 70 95 06/11/20 04:15 72 95 06/11/20 04:11 66 93 06/11/20 04:10 71 97 06/11/20 04:05 75 99 06/11/20 04:00 85 100 06/11/20 03:51 68 129/80 06/11/20 03:30 37.2 C 18 06/11/20 02:51 82 131/83 06/11/20 01:51 69 20 146/87 H 06/11/20 01:21 75 121/74 06/11/20 00:21 71 18 127/83 06/10/20 23:18 36.9 C 86 16 120/65 Pain Intensity Lower Back: Pain Intensity: 8 Transfer of Care Handoff Completed per policy Notes Mental Status: alert / awake / arousable Nausea / Vomiting: adequately controlled Pain: adequately controlled Airway Patency, RR, SpO2: stable & adequate BP & HR: stable & adequate Hydration State: stable & adequate Neuraxial Anesthesia: was administered and sensory block is resolving Anesthetic Complications: no major complications apparent
[2020-06-11 23:02] LABS: O2 Saturation Cord Venous Bld < 60.0 % (<68); Oxygen Sat Cord Arterial Blood < 60.0 % (<60)
[2020-06-11] MEDS ORDERED: NO NARCOTICS OR SEDATIVES SCH (23:15)
[2020-06-11] MEDS ORDERED: DC INTRASPINAL MORPHINE SCH (23:15)
[2020-06-11] MEDS ORDERED: SODIUM CHLORIDE 0.9% 1000ML 1,000 ML IV SCH (23:15)
[2020-06-11] MEDS ORDERED: SUPERCREAM 0.870% 15 GM JAR EXT PRN (23:30)
[2020-06-11] MEDS ORDERED: DIPHTHERIA/TETANUS/PERTUSSIS 0.5 ML SYR/VIAL IM ONE (23:30)
[2020-06-11] MEDS ORDERED: HYDROCORTISONE ACETATE 25 MG SUPP PR PRN (23:30)
[2020-06-11] MEDS ORDERED: BENZOCAINE 20% AER SPR 82.5 GM CAN EXT PRN (23:30)
[2020-06-11] MEDS ORDERED: MAGNESIUM HYDROXIDE SUSP 30 ML UDC PO PRN (23:30)
[2020-06-11] MEDS ORDERED: SENNA 8.6 MG TAB PO PRN (23:30)
[2020-06-12] MEDS: OXYTOCIN 30 UNITS in LACTATED RINGER'S 1,000 ML IV SCH ×2 (01:25→07:24)
[2020-06-12] MEDS: MEPERIDINE HCL 25 MG/ML CARP/VIAL IV PRN ×2 (01:52→09:18)
[2020-06-12 06:54] LABS: Hemoglobin 10.8 g/dL (12.0-16.0); Immature Granulocytes # (auto) 0.05 K/uL (0.00-0.02); Immature Granulocytes % (auto) 0.3 %; Lymphocytes # (auto) 0.72 K/uL (1.2-3.4); Lymphocytes % (auto) 4.4 %; Mean Corpuscular Hemoglobin 31.4 pg (25-34); Mean Corpuscular Hgb Conc 33.8 g/dL (32-36); Mean Platelet Volume 12.6 fL (7.4-10.4); Monocytes # (auto) 0.82 K/uL (0.11-0.59); Neutrophils # (auto) 14.83 K/uL (1.4-6.5); Neutrophils % (auto) 90.3 %; Platelet Count 118 K/uL (130-400); RDW Coefficient of Variation 14.7 % (11.5-14.5); RDW Standard Deviation 49.9 fL (36.4-46.3); Red Blood Count 3.44 M/uL (4.2-5.4); White Blood Count 16.42 K/uL (4.8-10.8)
--- NOTE | 2020-06-12 06:59 | Obstetrical Progress Note ---
Date of Service <Gopal Garcia MD - Last Filed: 06/12/20 06:59> June 12, 2020 Assessment & Plan <Gopal Garcia MD - Last Filed: 06/12/20 06:59> (1) state: Subjective <Gopal Garcia MD - Last Filed: 06/12/20 06:59> Patient denies acute complaints. Lower abd pain (s/p c section) is 4/10 currently. Toradol provided relief. No flatus or stool. +ambulation. Has south. Tolerating clear liquid diet. o N/V. Lochia small, w/o clots. . No F/C, headache, dizziness. Physical Exam <Gopal Garcia MD - Last Filed: 06/12/20 06:59> General: Alert, oriented. No acute distress. Cardiac: Regular rate and rhythm, no murmurs/rubs/gallops. Respiratory: Clear to auscultation, no wheezes/rales/rhonchi. No increased work of breathing. Symmetrical chest rise. No respiratory distress. Abdomen: LTCS scar clean dri, and intact, no drainage. Uterus: Uterine fundus firm, palpable 2 cm below umbilicus. Lower Extremities: Trace LE edema, minimal. No deep calf pain. Maliha's negative bilaterally. Results & Data ([facility]) <Gopal Garcia MD - Last Filed: 06/12/20 06:59> Vital Signs (Past 12 Hours) Vital Signs Temp Pulse Pulse Resp BP BP Pulse Ox 06/12/20 06:03 16 99 06/12/20 05:05 16 98 06/12/20 04:30 36.6 C 91 H 16 126/80 98 06/12/20 04:03 16 95 06/12/20 03:00 16 97 06/12/20 02:00 16 98 06/12/20 01:15 36.7 C 86 16 125/79 97 06/12/20 00:59 94 H 97 06/12/20 00:54 90 18 132/60 97 06/12/20 00:49 94 H 96 06/12/20 00:44 86 126/61 97 06/12/20 00:39 89 97 06/12/20 00:34 80 127/63 95 06/12/20 00:29 92 H 96 06/12/20 00:24 84 18 125/66 96 08/26/20 00:19 87 96 06/12/20 00:14 94 H 97 06/12/20 00:09 94 H 97 06/12/20 00:04 89 122/73 95 06/11/20 23:59 98 H 97 06/11/20 23:54 86 18 112/61 98 06/11/20 23:49 87 98 06/11/20 23:44 89 107/58 L 98 06/11/20 23:39 84 97 06/11/20 23:34 99 H 18 104/64 96 06/11/20 23:29 103 H 100 06/11/20 23:24 99 H 18 101/59 L 100 06/11/20 23:19 104 H 99 06/11/20 23:14 107 H 18 94/55 L 100 06/11/20 23:09 104 H 100 06/11/20 23:04 98 H 18 94/55 L 99 06/11/20 23:00 108 H 85/47 L 06/11/20 22:59 108 H 100 06/11/20 22:54 37.0 C 103 H 18 91/48 L 100 06/11/20 21:32 133 H 144/95 H 06/11/20 21:31 133 H 97 06/11/20 21:30 18 06/11/20 21:26 123 H 96 06/11/20 21:22 37.7 C H 06/11/20 21:21 127 H 96 06/11/20 21:17 116 H 140/80 06/11/20 21:16 134 H 97 06/11/20 21:11 154 H 97 06/11/20 21:06 120 H 132/76 96 06/11/20 21:01 136 H 97 06/11/20 21:00 18 06/11/20 20:56 122 H 96 06/11/20 20:51 123 H 97 06/11/20 20:46 127 H 97 06/11/20 20:41 124 H 98 06/11/20 20:36 120 H 98 06/11/20 20:31 103 H 99 06/11/20 20:30 18 06/11/20 20:26 102 H 96 06/11/20 20:21 107 H 96 06/11/20 20:17 89 140/82 06/11/20 20:16 103 H 97 06/11/20 20:11 90 96 06/11/20 20:08 91 H 130/69 06/11/20 20:06 93 H 98 06/11/20 20:02 86 141/76 H 06/11/20 20:01 86 94 06/11/20 20:00 18 06/11/20 19:58 102 H 147/80 H 06/11/20 19:56 102 H 140/76 100 06/11/20 19:54 87 140/75 06/11/20 19:52 96 H 135/72 06/11/20 19:51 104 H 98 06/11/20 19:50 101 H 144/74 H 06/11/20 19:48 98 H 144/76 H 06/11/20 19:47 100 H 136/88 06/11/20 19:46 95 H 100 06/11/20 19:44 89 123/58 L 06/11/20 19:42 91 H 128/67 06/11/20 19:41 101 H 141/67 H 99 06/11/20 19:38 92 H 137/74 06/11/20 19:36 89 131/65 98 06/11/20 19:34 90 143/70 H 06/11/20 19:32 106 H 132/77 06/11/20 19:31 91 H 100 06/11/20 19:30 93 H 18 141/66 H 06/11/20 19:27 37.1 C 06/11/20 19:26 95 H 143/82 H 99 06/11/20 19:21 88 99 06/11/20 19:16 108 H 99 06/11/20 19:11 126 H 100 06/11/20 19:10 96 H 142/90 H 06/11/20 19:06 116 H 100 06/11/20 19:01 94 H 95 06/11/20 18:56 115 H 99 <Kathy Major, DO - Last Filed: 06/12/20 08:29> Co-Signing Physician Notes Resident Physician Supervision Note: I was present with Dr. Garcia during the history and exam. I discussed the case with the resident and agree with the findings and plan as documented in the note. Any exceptions or clarifications are listed here: POD#1 doing well. Continue routine postop care. Documented By: Kathy Major, DO
[2020-06-12] MEDS: FERROUS SULFATE 325 MG TAB PO SCH (07:49)
[2020-06-12] MEDS: PRENATAL VITAMIN 1 TAB PO SCH (07:49)
[2020-06-12] MEDS: DOCUSATE SODIUM 100 MG CAP PO SCH ×2 (07:49→21:06)
[2020-06-12] MEDS: SIMETHICONE 80 MG CHEW PO SCH ×4 (07:49→21:06)
[2020-06-12] MEDS: LACTATED RINGER'S 1,000 ML IV SCH ×2 (14:25→17:16)
[2020-06-12] MEDS: IBUPROFEN 600 MG TAB PO PRN ×2 (17:14→21:06)
[2020-06-12] MEDS: OXYCODONE/ACETAMINOPHEN 5mg/325mg TAB PO PRN ×2 (17:15→21:07)
[2020-06-12] MEDS ORDERED: bisacodyL 5 MG TABEC PO SCH (20:00)
[2020-06-13] MEDS: IBUPROFEN 600 MG TAB PO PRN ×5 (02:30→20:41)
[2020-06-13] MEDS: OXYCODONE/ACETAMINOPHEN 5mg/325mg TAB PO PRN ×5 (02:30→20:42)
--- NOTE | 2020-06-13 06:25 | Obstetrical Progress Note ---
Date of Service <Gopal Garcia MD - Last Filed: 06/13/20 06:58> June 13, 2020 Assessment & Plan <Gopal Garcia MD - Last Filed: 06/13/20 06:58> (1) state: Subjective <Gopal Garcia MD - Last Filed: 06/13/20 06:58> 3/10 pain, alleviated by pain regimen. NO acute complaints. amulating, voiding, eating ok. No f/c, n/v, cp/sob. ok. Physical Exam <Gopal Garcia MD - Last Filed: 06/13/20 06:58> General: Alert, oriented. No acute distress. Cardiac: Regular rate and rhythm, no murmurs/rubs/gallops. 2+ mike Respiratory: Clear to auscultation, no wheezes/rales/rhonchi. No increased work of breathing. Symmetrical chest rise. No respiratory distress. Abdomen: LTCS scar clean, dry, and intact, no drainage. Lower Extremities: 2+ BLE edema No deep calf pain. Maliha's negative bilaterally. Results & Data ([facility]) <Gopal Garcia MD - Last Filed: 06/13/20 06:58> Vital Signs (Past 12 Hours) Vital Signs Temp Pulse Resp BP Pulse Ox 06/12/20 23:55 36.4 C L 80 16 114/70 95 06/12/20 20:05 36.6 C 90 20 129/80 98 <Babs Carter MD, FACOG - Last Filed: 06/13/20 07:26> Co-Signing Physician Notes Resident Physician Supervision Note: I interviewed and examined the patient. Discussed with Dr. Garcia and agree with findings and plan as documented in the note. Any exceptions or clarifications are listed here: Doing well, PPD 1.5. Pain has been well controlled, voiding lots and diuresing. Plan d/c tomorrow. Routine care. Documented By: Babs Carter MD, FACOG
[2020-06-13 06:58] LABS: Hematocrit (blood only) 33.2 % (37-47)
[2020-06-13] MEDS: SIMETHICONE 80 MG CHEW PO SCH ×4 (08:31→20:41)
[2020-06-13] MEDS: PRENATAL VITAMIN 1 TAB PO SCH (08:31)
[2020-06-13] MEDS: DOCUSATE SODIUM 100 MG CAP PO SCH ×2 (08:31→20:40)
[2020-06-13] MEDS: FERROUS SULFATE 325 MG TAB PO SCH (08:31)
[2020-06-13] MEDS ORDERED: bisacodyL 10 MG SUPP PR PRN (22:47)
[2020-06-14] MEDS: OXYCODONE/ACETAMINOPHEN 5mg/325mg TAB PO PRN ×3 (01:09→08:40)
[2020-06-14] MEDS: IBUPROFEN 600 MG TAB PO PRN ×3 (01:09→08:41)
--- NOTE | 2020-06-14 05:56 | Obstetrical Progress Note ---
Date of Service June 14, 2020 Assessment & Plan (1) state: Subjective pain 3/10, tolerable. -f/c/n/v/cp/sob, abd pain -bm. + flatus lochia minimal ok +amb/void, eating feels ready to go home Review of Systems Denies fever, chills, sweats Denies shortness of breath, difficulty breathing, chest pain, palpitations, chest pressure. Denies breast pain. Denies dysuria. Denies headache or changes in vision. Denies nausea/vomiting. Denies numbness, tingling, weakness. Physical Exam General: Alert, oriented. No acute distress. Cardiac: Regular rate and rhythm, no murmurs/rubs/gallops. Respiratory: Clear to auscultation, no wheezes/rales/rhonchi. No increased work of breathing. Symmetrical chest rise. No respiratory distress. Abdomen: LTCS scar clean, dry, and intact, no drainage. Lower Extremities: 2+ BLE edema No deep calf pain. Maliha's negative bilaterally. Results & Data ([facility] [place]) Vital Signs (Past 12 Hours) Vital Signs Temp Pulse Resp BP Pulse Ox 06/13/20 23:30 36.3 C L 85 18 125/77 99 06/13/20 19:15 36.8 C 90 20 120/80 98
--- NOTE | 2020-06-14 06:36 | Obstetrical Progress Note ---
Date of Service June 14, 2020 Assessment & Plan (1) state: Postoperative from section patient meets discharge criteria as she is ambulating well tolerating an oral diet has minimal bleeding and no extremity pain. Discharge instructions were reviewed and prescriptions were sent to her pharmacy of choice patient advised to call with any concerns and follow-up in the office discussed Subjective Ambulation: ambulating normally Voiding: no voiding problems Passing Gas:: Yes Diet Tolerance:: regular diet Lochia:: Small Feeding Type:: breast feeding Physical Exam Gastrointestinal (Abdomen) normal bowel sounds, soft, nontender, no hepatosplenomegaly (incision cdi) Results & Data ([facility]) Vital Signs (Past 12 Hours) Vital Signs Temp Pulse Resp BP Pulse Ox 06/13/20 23:30 97.3 F L 85 18 125/77 99 06/13/20 19:15 98.2 F 90 20 120/80 98
[2020-06-14] MEDS: FERROUS SULFATE 325 MG TAB PO SCH (08:40)
[2020-06-14] MEDS: PRENATAL VITAMIN 1 TAB PO SCH (08:40)
[2020-06-14] MEDS: DOCUSATE SODIUM 100 MG CAP PO SCH (08:40)
[2020-06-14] MEDS: SIMETHICONE 80 MG CHEW PO SCH (08:41)
--- NOTE | 2020-06-19 08:38 | Discharge Summary ---
Date of Service June 19, 2020 Admission HPI Per Admitting Provider The patient is a 25-year-old 1 para 0 with an EDC of 16 June by dates and first trimester ultrasound who was admitted at 39+ weeks gestational age for induction for suspected macrosomia. The patient has been measuring size greater than dates throughout the third trimester. Ultrasound showed an estimated weight greater than the 90th percentile. Options were discussed with the patient and she is admitted for induction. The patient presented to labor and delivery on 09 June for cervical Nesbitt placement for ripening. Patient states that the Nesbitt balloon dislodged at 0300 hrs. on day of admission. course showed a blood type of A-, antibody negative, she received RhoGam on 25 March, she had a negative rubella negative hepatitis B, she declined all genetic screening, she had a normal 1 hour Glucola at 16 weeks but elevated at 28 weeks, she had a -2-hour glucose tolerance test at 28 weeks, she had a positive third trimester beta strep culture, and a negative COVID-19 test on 03 June. Discharge Data Consultations 06/10/20 07:44 Consult Anesthesiology Stat Procedures Performed Operation Date: 06/11/20 20:40 Actual Procedures p Section in LD(Bilateral) - Kathy Major DO Hospital Course (1) : Admitted for IOL, please see labor notes for progress. Chorioamnionitis diagnosed. section - please see op notes for details. Routine course, discharged home POD#3 Coding Level of Care Code None Diagnoses Z34.90
== END 2020-06-14 12:35 | disposition home or self-care (01) | DRG 786 ==
LOC: 4S1 07:38 → 4S2 06-12 01:28

== ENCOUNTER 2022-08-28 05:33 | Inpatient (IN) ==
--- NOTE | 2022-08-25 09:51 | Anesthesiology Consultation ---
Date of Service August 25, 2022 Assessment & Plan (1) Encounter for pre-operative examination: COVID screening: Per assessment on 08/25: No known COVID-19 positive contacts or current COVID-19 related symptoms. Travel screen negative. Patient vaccinated. At surgeon discretion if preop Covid testing being done. Chart Review Chart Review: entry level recruiter initiated History Surgery Operation Date: 08/28/22 07:30 Proposed Procedures p Section in LD (Delivery of Baby Through Abdominal Incision) - Cinthia Ortega MD, FACOG Height/Weight Height: 5 ft 3 in Weight: 91.626 kg Allergies Allergy/AdvReac Type Severity Reaction Status Date / Time No Known Allergies Allergy Verified 08/19/22 10:54 Medications Home Medications Medication Instructions Recorded Confirmed Last Taken prenat.vits,bernard,[id number] 1 tab PO QPM 06/10/20 08/25/22 06/09/20 20:00 ondansetron HCl 4 mg tablet 4 mg PO TID PRN nausea and 04/08/22 08/25/22 Unknown vomiting 5 days #30 tabs Past Medical History Medical History Depression Group B streptococcal carriage complicating Need for rhogam due to Rh negative mother Varicella vaccination Past Family History Family History Grandmother No problems noted. Grandfather Prostate cancer Myocardial infarction Mother Anemia Father Dyslipidemia Brother No problems noted. Sister No problems noted. Other No family history of adverse response to anesthesia Denies family history of Ovarian cancer Breast cancer Colorectal cancer Past Surgical History Surgical History H/O myringotomy History of adenoidectomy History of arthroscopy of knee History of tonsillectomy History of wisdom tooth extraction S/P section Social History Smoking Status: Never smoker Do You Dip or Chew Tobacco: No Hx Alcohol Use: No Hx Substance Use: No substance use type: does not use
--- NOTE | 2022-08-27 06:52 | History & Physical Report ---
Date of Service August 27, 2022 Assessment & Plan (1) Previous delivery affecting , antepartum: Plan: IUP at 39+ weeks for repeat section. the procedure and it's risks were reviewed with the patient and all questions answered to her satisfaction. History of Present Illness Primary Care Provider: Dori Santos MD patient is a 27 yo female EDC 09/01/22 who presents at 39+ weeks for repeat C/S . prior C/S was done for failure to progress. otherwise uncomplicated. Blood type A negative, GBS-negative. Allergies Allergy/AdvReac Type Severity Reaction Status Date / Time No Known Allergies Allergy Verified 08/25/22 10:40 Home Medications Medication Instructions Recorded Confirmed Type prenat.vits,bernard,[id number]-[id number] 1 tab PO QPM 06/10/20 08/25/22 History ondansetron HCl 4 mg tablet 4 mg PO TID PRN nausea and 04/08/22 08/25/22 Rx vomiting 5 days #30 tabs Patient History Medical History Depression Group B streptococcal carriage complicating Need for rhogam due to Rh negative mother Varicella vaccination Surgical History H/O myringotomy History of adenoidectomy History of arthroscopy of knee History of tonsillectomy History of wisdom tooth extraction S/P section Family History Grandmother No problems noted. Grandfather Prostate cancer Myocardial infarction Mother Anemia Father Dyslipidemia Brother No problems noted. Sister No problems noted. 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 current occupational status: employed current occupation: [employer] Feels Safe at Home: Yes Childhood Exposure to Second-Hand Smoke: No Dental Care, Regularly: Yes Physical Activity Frequency: 3-4 Times per Week Seatbelt Use: always Sunscreen Use: Yes Assistive Devices: Contacts and Glasses Review of Systems All systems reviewed & are unremarkable except as noted in HPI & below Physical Exam Constitutional: WD/WN, vitals as above Respiratory: normal respiratory effort, lungs clear to auscultation Cardiovascular: RRR, no murmur, no edema Psychiatric: A+Ox3, euthymic affect Genitourinary: OB Exam Abdomen: + fundal height (term), + heart tones (135 BPM), + vertex and + estimated weight (7-8 pounds) Coding Level of Care Code None Diagnoses Previous delivery affecting , antepartum O34.219
[2022-08-28] MEDS ORDERED: SODIUM CHLORIDE 0.9% 250 ML IV PRN (05:40)
[2022-08-28] MEDS ORDERED: LACTATED RINGER'S 1,000 ML IV SCH ×2 (05:45→09:15)
[2022-08-28] MEDS ORDERED: CITRIC ACID/SODIUM CITRATE 15 ML UDC PO SCH (06:00)
[2022-08-28] MEDS ORDERED: ceFAZolin 2000MG 2,000 MG/15 ML SYR IV SCH (06:00)
[2022-08-28 06:08] LABS: Basophils # (auto) 0.02 K/uL (0-0.2); Basophils % (auto) 0.2 %; Eosinophils # (auto) 0.02 K/uL (0-0.50); Eosinophils % (auto) 0.2 %; Hematocrit (blood only) 35.7 % (34.1-44.9); Hemoglobin 12.4 g/dl (12.0-16.0); Immature Granulocytes # (auto) 0.04 K/uL (0.00-0.02); Immature Granulocytes % (auto) 0.5 %; Lymphocytes # (auto) 1.18 K/uL (1.2-3.4); Lymphocytes % (auto) 14.1 %; Mean Corpuscular Hemoglobin 30.5 pg (25.0-34.0); Mean Corpuscular Hgb Conc 34.7 g/dL (32.0-36.0); Mean Corpuscular Volume 87.9 fL (80.0-100.0); Mean Platelet Volume 12.1 fL (9.4-12.3); Monocytes # (auto) 0.45 K/uL (0.24-0.82); Monocytes % (auto) 5.4 %; Neutrophils # (auto) 6.68 K/uL (1.4-6.5); Neutrophils % (auto) 79.6 %; Platelet Count 171 K/uL (130-400); RDW Coefficient of Variation 14.4 % (11.5-14.5); RDW Standard Deviation 45.7 fL (36.4-46.3); Red Blood Count 4.06 M/uL (3.93-5.22); White Blood Count 8.39 K/ul (4.8-10.8)
[2022-08-28] MEDS ORDERED: MoRPHine SULFATE PF 1 MG/ML 10 ML AMP/VIAL ONE (06:48)
[2022-08-28] MEDS ORDERED: fentaNYL citrate 100 MCG/2 ML VIAL ONE (06:48)
[2022-08-28] MEDS ORDERED: ONDANSETRON INJ 2 MG/ML 2 ML VIAL ONE (06:48)
[2022-08-28] MEDS ORDERED: PHENYLEPHRINE HCL 10 MG/ML VIAL ONE (06:48)
[2022-08-28] MEDS ORDERED: KETOROLAC 30 MG/ML VIAL ONE (06:48)
[2022-08-28 06:51] LABS: Appearance Urine Clear (Clear); Bacteria Urine Automated Negative (Negative); Bilirubin Urine Negative (Negative); Blood Urine Negative (Negative); Cast Urine Automated 0 /lpf (0-5); Color Urine Yellow; Epithelial Cell Urine Auto >30 /lpf (0-5); Glucose Urine UA Negative (Negative); Ketones Urine Trace (Negative); Leukocyte Esterase Urine Negative (Negative); Nitrite Urine Negative (Negative); RBC Urine Automated 0-4 /hpf (0-4); Specific Gravity Urine 1.012 (1.000-1.030); Urobilinogen Urine Negative (Negative); pH Urine 7.5 (4.5-7.5)
[2022-08-28 07:04] LABS: Protein Urine Trace (Negative)
--- NOTE | 2022-08-28 07:35 | History & Physical Bridge Note ---
Date of Service August 28, 2022 History & Physical Bridge Note I have examined the patient, reviewed the History & Physical and in the interval since the performance of the History & Physical I have noted the following changes of clinical significance: COVID test today is positive. No recent symptoms.
[2022-08-28] MEDS ORDERED: NALBUPHINE HCL INJ 10 MG/ML AMP IV PRN (07:40)
[2022-08-28] MEDS ORDERED: NALOXONE HCL 0.08 MG in SYRINGE 1.8 ML IV PRN (07:40)
[2022-08-28] MEDS ORDERED: diphenhydrAMINE 50 MG/ML VIAL IV PRN (07:40)
[2022-08-28] MEDS ORDERED: ePHEDrine sulfate 50 MG/ML AMP IV PRN (07:40)
[2022-08-28] MEDS ORDERED: HYDROmorphone INJ 0.5 MG/0.5 ML SYR IV PRN (07:40)
[2022-08-28] MEDS ORDERED: PROMETHAZINE HCL 6.25 MG in SODIUM CHLORIDE 0.9% 50 ML IV PRN (07:40)
[2022-08-28] MEDS ORDERED: ACETAMINOPHEN 1,000 MG/100 ML VIAL IV PRN (07:40)
[2022-08-28] MEDS ORDERED: LACTATED RINGER'S 500 ML IV PRN (07:40)
[2022-08-28] MEDS ORDERED: NALOXONE HCL 0.4 MG/1 ML VIAL/CARP IV PRN (07:40)
[2022-08-28] MEDS ORDERED: NALOXONE HCL 1 MG in SODIUM CHLORIDE 0.9% 1000ML 1,000 ML IV PRN (07:40)
[2022-08-28] MEDS ORDERED: MoRPHine SULFATE PF 1 MG/ML 10 ML AMP/VIAL INT SPINAL ONE (07:40)
[2022-08-28] MEDS ORDERED: ONDANSETRON INJ 2 MG/ML 2 ML VIAL IV PRN ×2 (07:40→09:11)
[2022-08-28] MEDS ORDERED: NO NARCOTICS OR SEDATIVES SCH (07:45)
[2022-08-28] MEDS ORDERED: DC INTRASPINAL MORPHINE SCH (07:45)
[2022-08-28] MEDS ORDERED: SODIUM CHLORIDE 0.9% 1000ML 1,000 ML IV SCH (07:45)
--- NOTE | 2022-08-28 08:49 | Post Operative Brief Note ---
PG Immediate Post Op with CF Date of Surgery August 28, 2022 Pre & Post Diagnosis Operation Date: 08/28/22 07:30 Pre-Op Diagnosis: (1) Previous delivery affecting , antepartum: Plan: IUP at 39+ weeks for repeat section. I identified the patient and participated in the time-out.: Yes Procedure Operation Date: 08/28/22 07:30 Actual Procedures p Section in OR with result of live female child at 0817 in OR 1(Not Applicable) - Cinthia Ortega MD, FACOG Surgeon Cinthia Ortega MD, FACOG Engine Watchman Graciela Major DO Estimated Blood Loss 300 Findings Consistent with Post-Op Diagnosis Specimens Specimen Description: A: Placenta ( ) B: Cord Blood Drains Nesbitt Catheter (placed in OR, patient tolerated procedure well. ) Anesthesia Type Spinal Complications none Disposition Accompanied Patient To Recovery: Yes
[2022-08-28] MEDS ORDERED: SENNA 8.6 MG TAB PO PRN (09:11)
[2022-08-28] MEDS ORDERED: DIPHTHERIA/TETANUS/PERTUSSIS 0.5 ML SYR/VIAL IM ONE (09:11)
[2022-08-28] MEDS ORDERED: HYDROCORTISONE ACETATE 25 MG SUPP PR PRN (09:11)
[2022-08-28] MEDS ORDERED: MAGNESIUM HYDROXIDE SUSP 30 ML UDC PO PRN (09:11)
[2022-08-28] MEDS ORDERED: BENZOCAINE 20% AER SPR 82.5 GM CAN EXT PRN (09:11)
[2022-08-28] MEDS ORDERED: OXYTOCIN 20 UNITS in LACTATED RINGER'S 1,000 ML IV SCH (09:15)
--- NOTE | 2022-08-28 09:26 | Anesthesiology Progress Note ---
Date of Service August 28, 2022 Anesthesia Post Procedure Vital Signs Vital Signs: Temp Pulse Resp BP 08/28/22 05:52 99.1 F 18 08/28/22 05:47 108 H 135/78 Transfer of Care Handoff Completed per policy Notes Mental Status: alert / awake / arousable and participated in evaluation Patient Amnestic to Procedure: Yes Nausea / Vomiting: adequately controlled Pain: adequately controlled Airway Patency, RR, SpO2: stable & adequate BP & HR: stable & adequate Hydration State: stable & adequate Neuraxial Anesthesia: was administered and sensory block is resolving Anesthetic Complications: no major complications apparent and Pt Satisfied with anesthetic care
[2022-08-28] MEDS: KETOROLAC 30 MG/ML VIAL IV PRN ×2 (12:29→20:40)
[2022-08-28] MEDS: SIMETHICONE 80 MG CHEW PO SCH ×3 (12:29→20:12)
--- NOTE | 2022-08-28 16:09 | Operative Report ---
PG Post Operative Report Pre & Post Diagnosis Operation Date: 08/28/22 07:30 Pre-Op Diagnosis: (1) Previous delivery affecting , antepartum: Plan: IUP at 39+ weeks for repeat section. Post-Op Diagnosis: Section in LD with result of live female child at 0817 in OR 1 I identified the patient and participated in the time-out.: Yes Procedure Operation Date: 08/28/22 07:30 Actual Procedures p Section in OR with result of live female child at 0817 in OR 1(Not Applicable) - Cinthia Ortega MD, FACOG Surgeon Cinthia Ortega MD, FACOG Manufacturing Team Leader Graciela Major DO Estimated Blood Loss 300 Findings Consistent with Post-Op Diagnosis Uterus is gravid and consistent with a term in size bilateral ovaries and fallopian tubes were grossly normal. Lower uterine segment was intact with minimal thinning present. Specimens placenta to hold Drains Nesbitt to straight drainage Anesthesia Type Spinal Complications none Disposition Accompanied Patient To Recovery: Yes Indications Patient is a 27-year-old 2 para 1-0-0-1 white female EDC 09/01/2022 who presents for repeat section. First section was done because of failure to progress. She is requesting repeat section she understands the risks of procedure and is willing to proceed. Description of Procedure After the patient received adequate subarachnoid block she was prepped and draped in usual sterile fashion low transverse skin incision was made through her prior scar and carried to the fascia with the same scalpel. The fascial incision was then extended transversely with [place] scissors and the edges were grasped with Kodi clamps. The rectus muscle were then bluntly sharply dissected off of the overlying fascia. The peritoneum was then entered bluntly. The rectus muscle were then divided with a scalpel and blunt dissection. The bladder was taken down off the anterior surface of the uterus and placed behind the bladder blade. The lower uterine segment was entered with a scalpel to the level level of the membranes was then extended transversely in a blunt fashion. Membranes were ruptured for clear fluid. The female infant was delivered from the vertex presentation. Loose nuchal cord was reduced x2 prior to delivering the rest of the . The infant was vigorous and crying and moving all 4 limbs upon delivery. The cord was clamped and cut and the was handed off to Dr. Travis who was in attendance as stone rigger. After cord blood was obtained the placenta was expressed intact with a three-vessel cord. The uterus was then exteriorized and covered with a clean lap sponge. Uterine cavity was swept free of some retained membranes and clot. Bleeding was controlled with dilute Pitocin. Uterus was closed in 2 layers in a running locking imbricating fashion with 0 Monocryl. Hemostasis was noted be excellent on the uterine incision. The posterior cul-de-sac was examined and found to be free of any clot or fluid. The uterine incision was examined once more prior to placing it back in the abdominal cavity and it continued to have excellent hemostasis. The uterus was placed back inside the abdominal cavity and the gutters explored and found to be free of any clot or fluid. The uterine incision continued to be dry. Several bleeding sites along the bladder flap were cauterized. The rectus muscle were then brought together on the midline with individual stitches of 0 Monocryl. The fascia was closed in a running fashion with 0 Vicryl. After irrigating the adipose layer the skin edges were reapproximated using a subcuticular stitch of 4-0 Vicryl. Urine was clear at the end of the case mother and tolerated the procedure well was stable back in labor and delivery. I attest to the content of the Intraoperative Record and any orders documented therein. Any exceptions are noted below. OB Procedure Charges 34122
[2022-08-28] MEDS: DOCUSATE SODIUM 100 MG CAP PO SCH (20:12)
[2022-08-29] MEDS ORDERED: diphenhydrAMINE 50 MG/ML VIAL IV PRN (01:41)
[2022-08-29] MEDS ORDERED: KETOROLAC 30 MG/ML VIAL IV PRN (01:41)
[2022-08-29] MEDS ORDERED: ZOLPIDEM TARTRATE 5 MG TAB PO PRN (01:41)
[2022-08-29] MEDS ORDERED: PROMETHAZINE HCL 25 MG in SODIUM CHLORIDE 0.9% 50 ML IV PRN (01:41)
[2022-08-29] MEDS ORDERED: MEPERIDINE HCL 50 MG/ML CARP IV PRN (01:41)
[2022-08-29] MEDS ORDERED: diphenhydrAMINE Capsule 25 MG CAP PO PRN (01:41)
[2022-08-29] MEDS: oxyCODONE/ACETAMINOPHEN 5mg/325mg TAB PO PRN ×4 (01:43→15:21)
[2022-08-29] MEDS: IBUPROFEN 600 MG TAB PO PRN ×3 (05:59→15:21)
--- NOTE | 2022-08-29 06:38 | Obstetrical Progress Note ---
Date of Service August 29, 2022 Assessment & Plan (1) Previous delivery affecting , antepartum: (2) Supervision of normal intrauterine in multigravida: (3) Need for rhogam due to Rh negative mother: Plan s/p POD#1: Vitals reviewed and WNL, Tmax 37.5 Hemoglobin 12.4 (08/28), 11.3 (08/29) A-, GBS negative, Rubella immune Continue regular diet, treat pain as needed Patient hoping to d/c later today Admission and Anticipated Discharge Date Admission Date: August 28, 2022 Supervising Physician Co-Signing Physician Notes Resident Physician Supervision Note: I was present with Dr. Reynaga during the history and exam. I discussed the case with the resident and agree with the findings and plan as documented in the note. Any exceptions or clarifications are listed here: POD#1 doing well, desires DC home this evening. Rx #20 tabs percocet sent to pharmacy on file. Reviewed instructions, followup 6w PP. Documented By: Kathy Major, DO Claire Sabrina is a 27 y/o female who is POD #1 following delivery at 39 3/7 weeks. She reports feeling well overall this morning. Notes pain is managed on analgesics. Nesbitt catheter removed earlier this morning, able to void without issue. Tolerating meals overnight and able to ambulate some. Has some persistent lochia with some improvement this morning. Hoping to go home later today. Review of Systems Constitutional: no fever, no chills and no sweats Respiratory: no cough, no dyspnea and no wheezing Cardiovascular: no chest pain, no palpitations and no calf pain Genitourinary: no dysuria Neurologic: no headache(s) Physical Exam Constitutional: WD/WN, vitals as above no acute distress Respiratory: no respiratory distress Auscultation: lungs clear to auscultation bilaterally; no rales, no rhonchi and no wheezes Cardiovascular: RRR, no murmur, no edema Extremities: no calf tenderness and no edema Negative Maliha's sign bilaterally. Genitourinary: Uterine fundus firm, palpable below the umbilicus. Surgical incision site clean and healing appropriately. Results & Data ([facility]) Vital Signs (Past 12 Hours) Vital Signs Temp Pulse Resp BP Pulse Ox O2 Del Method 08/29/22 03:30 37.2 C 84 16 116/72 98 Room Air 08/29/22 01:30 18 98 08/29/22 00:30 18 98 08/28/22 23:30 16 97 08/28/22 22:30 18 99 08/28/22 21:30 18 99 08/28/22 20:30 16 98 08/28/22 19:30 16 98 08/28/22 23:30 36.2 C L 73 16 116/74 99 Room Air 08/29/22 00:00 Room Air 08/28/22 19:30 37.5 C 93 H 16 118/79 Room Air 08/28/22 20:49 16 98 Resident Activity Tracking Resident Involvement: Resident Care Provided Care Provided: OB Delivery
[2022-08-29 07:04] LABS: Basophils # (auto) 0.01 K/uL (0-0.2); Basophils % (auto) 0.2 %; Eosinophils # (auto) 0.01 K/uL (0-0.50); Eosinophils % (auto) 0.2 %; Hematocrit (blood only) 31.7 % (34.1-44.9); Hemoglobin 11.3 g/dl (12.0-16.0); Immature Granulocytes # (auto) 0.04 K/uL (0.00-0.02); Immature Granulocytes % (auto) 0.8 %; Lymphocytes # (auto) 0.55 K/uL (1.2-3.4); Lymphocytes % (auto) 10.8 %; Mean Corpuscular Hemoglobin 30.3 pg (25.0-34.0); Mean Corpuscular Hgb Conc 35.6 g/dL (32.0-36.0); Mean Platelet Volume 12.1 fL (9.4-12.3); Monocytes # (auto) 0.42 K/uL (0.24-0.82); Monocytes % (auto) 8.2 %; Neutrophils # (auto) 4.07 K/uL (1.4-6.5); Neutrophils % (auto) 79.8 %; Platelet Count 135 K/uL (130-400); RDW Coefficient of Variation 14.5 % (11.5-14.5); RDW Standard Deviation 44.2 fL (36.4-46.3); Red Blood Count 3.73 M/uL (3.93-5.22)
[2022-08-29] MEDS: DOCUSATE SODIUM 100 MG CAP PO SCH (07:38)
[2022-08-29] MEDS: SIMETHICONE 80 MG CHEW PO SCH ×2 (07:38→11:14)
[2022-08-29] MEDS ORDERED: PRENATAL VITAMIN 1 TAB PO SCH (08:00)
[2022-08-29] MEDS ORDERED: FERROUS SULFATE 325 MG TAB PO SCH (08:00)
[2022-08-29] MEDS ORDERED: bisacodyL 5 MG TABEC PO SCH (20:00)
[2022-08-30] MEDS ORDERED: bisacodyL 10 MG SUPP PR PRN (09:12)
--- NOTE | 2022-09-02 01:56 | Discharge Summary (DS) ---
DATE OF ADMISSION: 08/28/2022. DATE OF DISCHARGE: 08/29/2022. PRINCIPAL DIAGNOSIS: Intrauterine at 39 weeks with prior section, requesting repe at section. PRINCIPAL PROCEDURE: Repeat low transverse section with delivery of a viable female . BRIEF HISTORY AND HOSPITAL COURSE: The patient is a 27-year-old 2, para 1-0-0-1 female who p resents at 39+ weeks for repeat section. This was done without any complications, although her preoperative COVID swab was positive and the surgery was then performed in the negative pressure room in the OR. Otherwise, she had an uncomplicated surgical procedure and postop course. She was e ating regular diet on her first postoperative day, voiding without difficulty, ambulating without dif ficulty, and pain was well managed with oral pain medication. She was requesting discharge on her fi rst postop day and given her vital signs and progress, she was sent home late on her first postop day . Hemoglobin on admission was 12.4, hematocrit of 35.7; first postop day hemoglobin 11.3 and hematoc rit 31.7. She was sent home with the usual postop and instructions. She is to call for t emperature of 101 degrees or higher, heavy vaginal bleeding, burning with urination, increased rednes s, drainage, or pain from her incision, or any other concerns. She was given a prescription for Perc ocet 1-2 tablets p.o. q. 4-6 hours p.r.n. pain and Motrin 600 mg p.o. q. 6 hours p.r.n. pain. She is to be seen in the office in 6 weeks or prior to that if she has any other concerns. Job ID: [id number]
== END 2022-08-29 16:45 | disposition home or self-care (01) | DRG 786 ==
LOC: 4S1 05:33 → EDSTATUS 07:30 → 4E1 10:47